=== PATIENT | male | born 1955 | race Caucasian/White ===

== ENCOUNTER 2022-10-27 22:51 | Inpatient (IN) | payer BC ==
[~2022-10-27] VITALS: Ht 182.9 cm; Wt 96.6 kg
[2022-10-27 23:08] VITALS: BP_SYST 134
[2022-10-28] VITALS (7 sets, daily range): BP systolic 118–147
[2022-10-28] MEDS ORDERED: NACL 0.9% 1,000 ML IV ONE
[2022-10-28 02:09] LABS: BASOPHILS % (AUTO) 0.3 % (0.0-2.0); EOSINOPHILS # (AUTO) 0.1 K/uL (0.0-0.4); EOSINOPHILS % (AUTO) 1.1 % (0.0-4.0); HEMATOCRIT 37.9 % (36-54); HEMOGLOBIN 12.6 g/dL (14.0-18.0); LYMPHOCYTES # (AUTO) 2.3 K/uL (1.0-5.5); LYMPHOCYTES % (AUTO) 25.3 % (20.5-51.5); MEAN CORPUSCULAR HEMOGLOBIN 25 pg (27-31); MEAN CORPUSCULAR HGB CONC 33 % (32-36); MEAN CORPUSCULAR VOLUME 75 fL (79.0-98.0); MONOCYTES # (AUTO) 0.7 K/uL (0.0-1.0); MONOCYTES % (AUTO) 7.2 % (1.7-9.3); NEUTROPHILS % (AUTO) 66.1 % (40.0-70.0); PLATELET COUNT (AUTO) 380 K/uL (130-430); RED BLOOD CELL COUNT(AUTO) 5.04 MIL/uL (4.2-6.2); RED CELL DISTRIBUTION WIDTH 13.6 % (9.0-15.0); WHITE BLOOD COUNT (AUTO) 9.1 K/uL (4.8-10.8)
[2022-10-28 02:22] LABS: ANION GAP 11 (5-15); CALCIUM 8.5 mg/dL (8.4-11.0); CHLORIDE 90 mmol/L (98-107); CREATININE 0.88 mg/dL (0.55-1.30); GFR AFRICAN AMERICAN 110 mL/min (>90); GLUCOSE 101 mg/dL (70-99); UREA NITROGEN, BLOOD 22 mg/dL (8-21)
[2022-10-28] MEDS ORDERED: IOHEXOL 350 mgI/mL, 150 ML INFUS..BTL IV ONE (02:29)
[2022-10-28 02:30] LABS: ALANINE AMINOTRANSFERASE 37 U/L (12-78); ALBUMIN 3.3 g/dL (3.4-4.8); ASPARTATE AMINOTRANSFERASE 29 U/L (10-37); LIPASE 236 U/L (73-393); TOTAL BILIRUBIN 0.5 mg/dL (0.0-1.0)
[2022-10-28] MEDS ORDERED: HYDR25TA4 PO (02:57)
[2022-10-28] MEDS ORDERED: METO50TA7 PO (02:57)
[2022-10-28] MEDS ORDERED: NOR10 PO (02:57)
[2022-10-28] MEDS ORDERED: LISI40TA13 PO (02:57)
[2022-10-28] MEDS ORDERED: iohexoL 300 mgI/mL, 150 ML INFUS..BTL IV ONE (03:17)
[2022-10-28] MEDS ORDERED: D5/0.45 NS 1,000 ML IV SCH (05:30)
[2022-10-28 12:14] LABS: PROTHROMBIN TIME 10.7 SECS (9.5-12.5)
[2022-10-28] MEDS ORDERED: amLODIPine BESYLATE 10 MG TABLET PO ONE (15:45)
[2022-10-28] MEDS ORDERED: METOPROLOL SUCCINATE 50 MG TAB.SR.24H (TOPROL XL) PO ONE (15:45)
[2022-10-28] MEDS ORDERED: ENOXAPARIN SODIUM 100 MG/ML SYRINGE SUBCUT ONE (16:00)
[2022-10-28] MEDS ORDERED: lisinopriL 20 MG TABLET PO ONE (16:00)
[2022-10-28] MEDS ORDERED: HYDROCHLOROTHIAZIDE 25 MG TABLET (HCTZ) PO ONE (16:00)
[2022-10-28] MEDS: FUROSEMIDE 20 MG/2 ML VIAL IVP ONE ×2 (18:00→22:02)
[2022-10-28] MEDS: DEXAMETHASONE SOD PHOSPHATE 4 MG/ML VIAL IVP SCH ×2 (18:03→22:03)
[2022-10-28] MEDS: PIPERACILLIN/TAZO 3.375/DEX-IS 50 ML IV SCH ×2 (19:02→22:03)
[2022-10-28] MEDS: NACL 0.9% 1,000 ML IV SCH (19:03)
[2022-10-29] VITALS: BP_SYST 149
[2022-10-29] MEDS: NACL 0.9% 1,000 ML IV SCH ×3 (01:45→22:17)
[2022-10-29] MEDS: PIPERACILLIN/TAZO 3.375/DEX-IS 50 ML IV SCH ×4 (04:05→22:17)
[2022-10-29] MEDS: DEXAMETHASONE SOD PHOSPHATE 4 MG/ML VIAL IVP SCH ×4 (04:05→22:17)
[2022-10-29 07:20] LABS: CREATININE 1.04 mg/dL (0.55-1.30)
[2022-10-29 07:21] LABS: BASOPHILS % (AUTO) 0.1 % (0.0-2.0); HEMATOCRIT 38.8 % (36-54); HEMOGLOBIN 13.1 g/dL (14.0-18.0); LYMPHOCYTES # (AUTO) 1.4 K/uL (1.0-5.5); LYMPHOCYTES % (AUTO) 19.5 % (20.5-51.5); MEAN CORPUSCULAR HEMOGLOBIN 26 pg (27-31); MEAN CORPUSCULAR HGB CONC 34 % (32-36); MEAN CORPUSCULAR VOLUME 76 fL (79.0-98.0); MONOCYTES # (AUTO) 0.1 K/uL (0.0-1.0); MONOCYTES % (AUTO) 1.2 % (1.7-9.3); NEUTROPHILS # (AUTO) 5.8 K/uL (1.8-7.7); NEUTROPHILS % (AUTO) 79.2 % (40.0-70.0); PLATELET COUNT (AUTO) 388 K/uL (130-430); RED BLOOD CELL COUNT(AUTO) 5.13 MIL/uL (4.2-6.2); RED CELL DISTRIBUTION WIDTH 13.8 % (9.0-15.0); WHITE BLOOD COUNT (AUTO) 7.3 K/uL (4.8-10.8)
[2022-10-29] MEDS ORDERED: DIATR MEGLU/DIATRIZ SOD 30 ML SOLUTION PO ONE (07:44)
[2022-10-29 08:00] VITALS: BP_SYST 137
[2022-10-29] MEDS: FUROSEMIDE 20 MG/2 ML VIAL IVP SCH (09:17)
[2022-10-29] MEDS: HYDROCHLOROTHIAZIDE 25 MG TABLET (HCTZ) PO SCH (09:18)
[2022-10-29] MEDS: amLODIPine BESYLATE 10 MG TABLET PO SCH (09:19)
[2022-10-29] MEDS: lisinopriL 20 MG TABLET PO SCH (09:19)
[2022-10-29] MEDS: METOPROLOL SUCCINATE 50 MG TAB.SR.24H (TOPROL XL) PO SCH (09:20)
[2022-10-29 12:09] VITALS: BP_SYST 140
[2022-10-29 13:39] LABS: BASOPHILS % (AUTO) 0.3 % (0.0-2.0); HEMATOCRIT 38.3 % (36-54); HEMOGLOBIN 12.7 g/dL (14.0-18.0); LYMPHOCYTES # (AUTO) 1.5 K/uL (1.0-5.5); LYMPHOCYTES % (AUTO) 20.3 % (20.5-51.5); MEAN CORPUSCULAR HEMOGLOBIN 25 pg (27-31); MEAN CORPUSCULAR HGB CONC 33 % (32-36); MEAN CORPUSCULAR VOLUME 76 fL (79.0-98.0); MONOCYTES # (AUTO) 0.1 K/uL (0.0-1.0); MONOCYTES % (AUTO) 1.8 % (1.7-9.3); NEUTROPHILS # (AUTO) 5.7 K/uL (1.8-7.7); NEUTROPHILS % (AUTO) 77.6 % (40.0-70.0); PLATELET COUNT (AUTO) 360 K/uL (130-430); RED BLOOD CELL COUNT(AUTO) 5.04 MIL/uL (4.2-6.2); RED CELL DISTRIBUTION WIDTH 14.1 % (9.0-15.0); WHITE BLOOD COUNT (AUTO) 7.3 K/uL (4.8-10.8)
[2022-10-29 16:00] VITALS: BP_SYST 138
[2022-10-29] MEDS ORDERED: *HEPARIN PER PHARMACY XX ONE (16:15)
[2022-10-29] MEDS ORDERED: HEPARIN SODIUM,PORCINE 2000 UNITS/0.4 ML BOLUS IVP PRN (16:30)
[2022-10-29] MEDS ORDERED: HEPARIN SODIUM,PORCINE 3000 UNITS/0.6 ML BOLUS IVP PRN (16:30)
[2022-10-29] MEDS ORDERED: HEPARIN SODIUM,PORCINE 5,000 UNITS/ML VIAL IVP ONE (16:45)
[2022-10-29] MEDS: HEPARIN 25,000 UNITS in 250 ML PREMIX IV PRN (17:12)
[2022-10-29 20:05] VITALS: BP_SYST 124
[2022-10-30 02:09] VITALS: BP_SYST 160
[2022-10-30] MEDS: PIPERACILLIN/TAZO 3.375/DEX-IS 50 ML IV SCH ×4 (04:43→21:45)
[2022-10-30] MEDS: DEXAMETHASONE SOD PHOSPHATE 4 MG/ML VIAL IVP SCH ×4 (04:43→21:45)
[2022-10-30] MEDS: NACL 0.9% 1,000 ML IV SCH ×2 (07:45→17:53)
[2022-10-30 07:50] LABS: CREATININE 0.98 mg/dL (0.55-1.30)
[2022-10-30 07:59] VITALS: BP_SYST 137
[2022-10-30 08:01] LABS: BASOPHILS % (AUTO) 0.1 % (0.0-2.0); HEMATOCRIT 36.6 % (36-54); HEMOGLOBIN 12.3 g/dL (14.0-18.0); LYMPHOCYTES # (AUTO) 1.5 K/uL (1.0-5.5); LYMPHOCYTES % (AUTO) 14.6 % (20.5-51.5); MEAN CORPUSCULAR HEMOGLOBIN 25 pg (27-31); MEAN CORPUSCULAR HGB CONC 34 % (32-36); MEAN CORPUSCULAR VOLUME 75 fL (79.0-98.0); MONOCYTES # (AUTO) 0.4 K/uL (0.0-1.0); MONOCYTES % (AUTO) 3.9 % (1.7-9.3); NEUTROPHILS # (AUTO) 8.2 K/uL (1.8-7.7); NEUTROPHILS % (AUTO) 81.4 % (40.0-70.0); PLATELET COUNT (AUTO) 355 K/uL (130-430); RED BLOOD CELL COUNT(AUTO) 4.86 MIL/uL (4.2-6.2); WHITE BLOOD COUNT (AUTO) 10.1 K/uL (4.8-10.8)
[2022-10-30] MEDS: METOPROLOL SUCCINATE 50 MG TAB.SR.24H (TOPROL XL) PO SCH (10:08)
[2022-10-30] MEDS: amLODIPine BESYLATE 10 MG TABLET PO SCH (10:09)
[2022-10-30] MEDS: HYDROCHLOROTHIAZIDE 25 MG TABLET (HCTZ) PO SCH (10:10)
[2022-10-30] MEDS: lisinopriL 20 MG TABLET PO SCH (10:10)
[2022-10-30] MEDS: FUROSEMIDE 20 MG/2 ML VIAL IVP SCH (10:11)
[2022-10-30 11:47] VITALS: BP_SYST 118
[2022-10-30 15:34] LABS: BODY FLUID TOTAL VOLUME 1500 mL
[2022-10-30 16:28] VITALS: BP_SYST 124
[2022-10-30] MEDS ORDERED: *HEPARIN PER PHARMACY XX ONE (16:30)
[2022-10-30] MEDS ORDERED: HEPARIN SODIUM,PORCINE 5,000 UNITS/ML VIAL IVP ONE (16:45)
[2022-10-30] MEDS: HEPARIN 25,000 UNITS in 250 ML PREMIX IV PRN (17:20)
[2022-10-30 17:27] LABS: SOURCE/TYPE ,BODY FLUID THORACENTESIS
[2022-10-30 17:28] LABS: BF APPEARANCE UNSPUN HAZY (CLEAR); BODY FLUID COLOR YELLOW (LT YELLOW)
[2022-10-30 17:29] LABS: BODY FLUID SOURCE/ TYPE THORACENTESIS; LYMPHOCYTES, BODY FLUID 96 %; NEUTROPHIL, BODY FLUID 2 %; RBC, BODY FLUID 270 /uL; WBC, BODY FLUID 1680 /uL
[2022-10-30 17:30] LABS: EOSINOPHIL, BODY FLUID 1 %; MONOCYTES,BODY FLUID 1 %
[2022-10-30 19:50] VITALS: BP_SYST 137
[2022-10-30 21:48] LABS: BODY FLUID GLUCOSE 130 mg/dL; BODY FLUID TOTAL PROTEIN 4.3 g/dL
[2022-10-31 01:18] VITALS: BP_SYST 121
[2022-10-31] MEDS: PIPERACILLIN/TAZO 3.375/DEX-IS 50 ML IV SCH ×4 (03:14→22:00)
[2022-10-31] MEDS: NACL 0.9% 1,000 ML IV SCH ×2 (03:14→13:52)
[2022-10-31] MEDS: DEXAMETHASONE SOD PHOSPHATE 4 MG/ML VIAL IVP SCH ×4 (03:14→22:00)
[2022-10-31 05:37] LABS: BASOPHILS % (AUTO) 0.1 % (0.0-2.0); HEMATOCRIT 38.4 % (36-54); HEMOGLOBIN 12.7 g/dL (14.0-18.0); LYMPHOCYTES # (AUTO) 1.3 K/uL (1.0-5.5); LYMPHOCYTES % (AUTO) 11.5 % (20.5-51.5); MEAN CORPUSCULAR HEMOGLOBIN 25 pg (27-31); MEAN CORPUSCULAR HGB CONC 33 % (32-36); MEAN CORPUSCULAR VOLUME 75 fL (79.0-98.0); MONOCYTES # (AUTO) 0.5 K/uL (0.0-1.0); MONOCYTES % (AUTO) 4.1 % (1.7-9.3); NEUTROPHILS # (AUTO) 9.4 K/uL (1.8-7.7); NEUTROPHILS % (AUTO) 84.3 % (40.0-70.0); PLATELET COUNT (AUTO) 393 K/uL (130-430); RED BLOOD CELL COUNT(AUTO) 5.11 MIL/uL (4.2-6.2); RED CELL DISTRIBUTION WIDTH 14.2 % (9.0-15.0); WHITE BLOOD COUNT (AUTO) 11.1 K/uL (4.8-10.8)
[2022-10-31 06:00] LABS: CREATININE 1.03 mg/dL (0.55-1.30)
[2022-10-31 07:36] VITALS: BP_SYST 123
[2022-10-31] MEDS ORDERED: BENZOCAINE 20% 0.5mL UD SPRAY MM ONE (09:03)
[2022-10-31] MEDS: fentaNYL CITRATE/PF 100 MCG/2 ML AMP ONE ×3 (09:03→09:12)
[2022-10-31] MEDS ORDERED: LIDOCAINE 2% JELLY UROJECT 10 ML MM ONE (09:03)
[2022-10-31] MEDS: MIDAZOLAM HCL 5 MG/5 ML VIAL ONE ×4 (09:03→09:15)
[2022-10-31] MEDS ORDERED: LIDOCAINE MPF 2% 20 MG/1 ML, 5 ML VIAL INH ONE (09:04)
[2022-10-31] MEDS ORDERED: LIDOCAINE 2%, 20 ML MDV ONE ×2 (09:06→09:17)
[2022-10-31] MEDS ORDERED: EPINEPHrine HCL 1 MG/ML VIAL ONE (09:20)
[2022-10-31 10:46] VITALS: BP_SYST 120
[2022-10-31] MEDS: FUROSEMIDE 20 MG/2 ML VIAL IVP SCH (11:01)
[2022-10-31 12:00] VITALS: BP_SYST 124
[2022-10-31 16:00] VITALS: BP_SYST 124
[2022-10-31 19:45] VITALS: BP_SYST 140
[2022-11-01 00:40] VITALS: BP_SYST 146
[2022-11-01] MEDS: NACL 0.9% 1,000 ML IV SCH (01:28)
[2022-11-01] MEDS: PIPERACILLIN/TAZO 3.375/DEX-IS 50 ML IV SCH ×4 (03:26→21:03)
[2022-11-01] MEDS: DEXAMETHASONE SOD PHOSPHATE 4 MG/ML VIAL IVP SCH ×4 (03:26→21:03)
[2022-11-01 08:00] VITALS: BP_SYST 151
[2022-11-01 08:06] LABS: BASOPHILS % (AUTO) 0.2 % (0.0-2.0); HEMOGLOBIN 12.2 g/dL (14.0-18.0); LYMPHOCYTES # (AUTO) 1.2 K/uL (1.0-5.5); LYMPHOCYTES % (AUTO) 13.1 % (20.5-51.5); MEAN CORPUSCULAR HEMOGLOBIN 25 pg (27-31); MEAN CORPUSCULAR HGB CONC 33 % (32-36); MEAN CORPUSCULAR VOLUME 75 fL (79.0-98.0); MONOCYTES # (AUTO) 0.4 K/uL (0.0-1.0); MONOCYTES % (AUTO) 4.4 % (1.7-9.3); NEUTROPHILS # (AUTO) 7.7 K/uL (1.8-7.7); NEUTROPHILS % (AUTO) 82.3 % (40.0-70.0); PLATELET COUNT (AUTO) 358 K/uL (130-430); RED BLOOD CELL COUNT(AUTO) 4.92 MIL/uL (4.2-6.2); RED CELL DISTRIBUTION WIDTH 14.2 % (9.0-15.0); WHITE BLOOD COUNT (AUTO) 9.3 K/uL (4.8-10.8)
[2022-11-01 08:16] LABS: CALCIUM 8.8 mg/dL (8.4-11.0); CREATININE 0.89 mg/dL (0.55-1.30)
[2022-11-01] MEDS: METOPROLOL SUCCINATE 50 MG TAB.SR.24H (TOPROL XL) PO SCH (09:10)
[2022-11-01] MEDS: amLODIPine BESYLATE 10 MG TABLET PO SCH (09:11)
[2022-11-01] MEDS: ENOXAPARIN SODIUM 100 MG/ML SYRINGE SUBCUT SCH ×2 (09:11→21:03)
[2022-11-01] MEDS: HYDROCHLOROTHIAZIDE 25 MG TABLET (HCTZ) PO SCH (09:12)
[2022-11-01] MEDS: lisinopriL 20 MG TABLET PO SCH (09:12)
[2022-11-01] MEDS: FUROSEMIDE 20 MG/2 ML VIAL IVP SCH (09:16)
[2022-11-01 12:30] VITALS: BP_SYST 136
[2022-11-01] MEDS ORDERED: *LOVENOX 1MG/KG Q12H/PHARMACY XX ONE (14:45)
[2022-11-01 16:30] VITALS: BP_SYST 127
[2022-11-01 20:00] VITALS: BP_SYST 150
[2022-11-02] VITALS: BP_SYST 124
[2022-11-02] MEDS: DEXAMETHASONE SOD PHOSPHATE 4 MG/ML VIAL IVP SCH ×4 (03:35→22:00)
[2022-11-02] MEDS: PIPERACILLIN/TAZO 3.375/DEX-IS 50 ML IV SCH ×4 (03:36→22:01)
[2022-11-02 07:24] LABS: BASOPHILS % (AUTO) 0.2 % (0.0-2.0); HEMATOCRIT 35.7 % (36-54); HEMOGLOBIN 11.7 g/dL (14.0-18.0); LYMPHOCYTES # (AUTO) 1.3 K/uL (1.0-5.5); LYMPHOCYTES % (AUTO) 16.4 % (20.5-51.5); MEAN CORPUSCULAR HEMOGLOBIN 25 pg (27-31); MEAN CORPUSCULAR HGB CONC 33 % (32-36); MEAN CORPUSCULAR VOLUME 76 fL (79.0-98.0); MONOCYTES # (AUTO) 0.6 K/uL (0.0-1.0); MONOCYTES % (AUTO) 6.8 % (1.7-9.3); NEUTROPHILS # (AUTO) 6.2 K/uL (1.8-7.7); NEUTROPHILS % (AUTO) 76.6 % (40.0-70.0); PLATELET COUNT (AUTO) 303 K/uL (130-430); RED BLOOD CELL COUNT(AUTO) 4.71 MIL/uL (4.2-6.2); RED CELL DISTRIBUTION WIDTH 13.9 % (9.0-15.0); WHITE BLOOD COUNT (AUTO) 8.1 K/uL (4.8-10.8)
[2022-11-02 07:35] LABS: ERYTHROCYTE SEDIMENTATION RATE 10 MM/HR (0-15)
[2022-11-02 07:44] LABS: CALCIUM 8.7 mg/dL (8.4-11.0); CREATININE 0.87 mg/dL (0.55-1.30)
[2022-11-02 07:52] LABS: C-REACTIVE PROTEIN QUANT 0.4 mg/dL (0-0.5)
[2022-11-02 08:00] VITALS: BP_SYST 141
[2022-11-02] MEDS: METOPROLOL SUCCINATE 50 MG TAB.SR.24H (TOPROL XL) PO SCH (09:06)
[2022-11-02] MEDS: HYDROCHLOROTHIAZIDE 25 MG TABLET (HCTZ) PO SCH (09:07)
[2022-11-02] MEDS: amLODIPine BESYLATE 10 MG TABLET PO SCH (09:07)
[2022-11-02] MEDS: lisinopriL 20 MG TABLET PO SCH (09:07)
[2022-11-02] MEDS: ENOXAPARIN SODIUM 100 MG/ML SYRINGE SUBCUT SCH ×2 (09:08→20:54)
[2022-11-02] MEDS: FUROSEMIDE 20 MG/2 ML VIAL IVP SCH (09:57)
[2022-11-02 12:30] VITALS: BP_SYST 137
[2022-11-02 18:39] VITALS: BP_SYST 133
[2022-11-02 19:29] VITALS: BP_SYST 133
[2022-11-03 00:17] VITALS: BP_SYST 122
[2022-11-03] MEDS: DEXAMETHASONE SOD PHOSPHATE 4 MG/ML VIAL IVP SCH ×2 (04:01→11:15)
[2022-11-03] MEDS: PIPERACILLIN/TAZO 3.375/DEX-IS 50 ML IV SCH ×2 (04:02→11:15)
[2022-11-03 05:27] LABS: HEMATOCRIT 38.1 % (36-54); HEMOGLOBIN 12.5 g/dL (14.0-18.0); LYMPHOCYTES # (AUTO) 1.8 K/uL (1.0-5.5); LYMPHOCYTES % (AUTO) 19.3 % (20.5-51.5); MEAN CORPUSCULAR HEMOGLOBIN 25 pg (27-31); MEAN CORPUSCULAR HGB CONC 33 % (32-36); MEAN CORPUSCULAR VOLUME 75 fL (79.0-98.0); MONOCYTES # (AUTO) 0.6 K/uL (0.0-1.0); MONOCYTES % (AUTO) 6.2 % (1.7-9.3); NEUTROPHILS # (AUTO) 7.1 K/uL (1.8-7.7); NEUTROPHILS % (AUTO) 74.5 % (40.0-70.0); PLATELET COUNT (AUTO) 344 K/uL (130-430); RED BLOOD CELL COUNT(AUTO) 5.06 MIL/uL (4.2-6.2); RED CELL DISTRIBUTION WIDTH 13.9 % (9.0-15.0); WHITE BLOOD COUNT (AUTO) 9.5 K/uL (4.8-10.8)
[2022-11-03 06:13] LABS: ALANINE AMINOTRANSFERASE 67 U/L (12-78); ALBUMIN 3.2 g/dL (3.4-4.8); ANION GAP 9 (5-15); ASPARTATE AMINOTRANSFERASE 22 U/L (10-37); C-REACTIVE PROTEIN QUANT < 0.2 mg/dL (0-0.5); CALCIUM 9.1 mg/dL (8.4-11.0); CHLORIDE 97 mmol/L (98-107); CREATININE 0.93 mg/dL (0.55-1.30); GFR AFRICAN AMERICAN 104 mL/min (>90); GLUCOSE 135 mg/dL (70-99); TOTAL BILIRUBIN 0.7 mg/dL (0.0-1.0); UREA NITROGEN, BLOOD 28 mg/dL (8-21)
[2022-11-03] MEDS: amLODIPine BESYLATE 10 MG TABLET PO SCH (08:38)
[2022-11-03] MEDS: ENOXAPARIN SODIUM 100 MG/ML SYRINGE SUBCUT SCH (08:38)
[2022-11-03] MEDS: lisinopriL 20 MG TABLET PO SCH (08:39)
[2022-11-03 08:40] LABS: ERYTHROCYTE SEDIMENTATION RATE 19 MM/HR (0-15)
[2022-11-03] MEDS: METOPROLOL SUCCINATE 50 MG TAB.SR.24H (TOPROL XL) PO SCH (08:40)
[2022-11-03] MEDS: FUROSEMIDE 20 MG/2 ML VIAL IVP SCH (08:40)
[2022-11-03] MEDS: HYDROCHLOROTHIAZIDE 25 MG TABLET (HCTZ) PO SCH (08:40)
[2022-11-03 11:13] VITALS: BP_SYST 137
[2022-11-03] MEDS ORDERED: LOVI100 SUBCUT (12:15)
[2022-11-03] MEDS ORDERED: LASI20 IVP (12:45)
[2022-11-03] MEDS ORDERED: DEC4 PO (12:45)
[2022-11-03] MEDS ORDERED: AMOX-423 PO (12:46)
[2022-11-03] MEDS ORDERED: FURO-150 PO (13:10)
[2022-11-03 14:25] VITALS: BP_SYST 136
== END 2022-11-03 15:15 | disposition home or self-care (01) | DRG 181 ==
LOC: SED 22:51 → STU 10-28 05:23
PROVIDERS: ADMIT Specialist; ATTEND Specialist
PROC: 0B9K8ZX Drainage of Right Lung, Via Natural or Artificial Opening Endoscopic, Diagnostic (ICD-10-PCS; principal; 2022-10-31 09:14)
DX: C34.90 Malignant neoplasm of unspecified part of unspecified bronchus or lung (principal); E44.1 Mild protein-calorie malnutrition; J44.1 Chronic obstructive pulmonary disease with (acute) exacerbation; I87.1 Compression of vein; I82.C11 Acute embolism and thrombosis of right internal jugular vein; E87.1 Hypo-osmolality and hyponatremia; J90 Pleural effusion, not elsewhere classified; R18.8 Other ascites; I31.39 Other pericardial effusion (noninflammatory); J98.19 Other pulmonary collapse; I10 Essential (primary) hypertension; Z20.822 Contact with and (suspected) exposure to COVID-19; E66.9 Obesity, unspecified; R13.19 Other dysphagia; E27.8 Other specified disorders of adrenal gland; F17.200 Nicotine dependence, unspecified, uncomplicated; Z79.01 Long term (current) use of anticoagulants; Z68.28 Body mass index [BMI] 28.0-28.9, adult
CPT/HCPCS: 31624; 31625; 32555; 36415; 70491-TC; 71045; 71260-TC; 76376; 80048; 80053; 82947; 83690; 83880; 84157; 84484; 85025; 85610-TC; 85651-TC; 85730-TC; 86140; 87070; 88108; 88305; 88341; 88342; 88360; 89051-TC; 89060-TC; 93005; 93971; 96360; 99291; G0378; J0171; J1100; J1644; J1650; J1940; J2001; J2250; J2543; J3010; J7030; Q9964; Q9967